=== PATIENT | female | born 1930 | race Caucasian/White ===

== ENCOUNTER 2021-03-19 07:52 | Inpatient (IN) | payer OTHER ==
[~2021-03-19] VITALS: Ht 304.8 cm; Wt 68.0 kg
--- NOTE | 2021-03-19 08:14 | NUR ---
MD Quintero at bedside for assessment
--- NOTE | 2021-03-19 08:15 | NUR ---
Patient complaints of abdominal pain for 4 days
[2021-03-19] MEDS ORDERED: FURO20TA4 PO (08:27)
[2021-03-19] MEDS ORDERED: DOCU100C36 PO (08:27)
[2021-03-19] MEDS ORDERED: CARV25TA2 PO (08:27)
[2021-03-19] MEDS ORDERED: APIX5TAB PO (08:27)
[2021-03-19] MEDS ORDERED: CILO100T PO (08:27)
[2021-03-19] MEDS ORDERED: NITR0.4T SL (08:27)
[2021-03-19] MEDS ORDERED: SULF1TAB48 PO (08:27)
[2021-03-19] MEDS ORDERED: [UNRECOGNIZED DRUG - OTHER] PO (08:27)
[2021-03-19] MEDS ORDERED: ATOR20TA PO (08:27)
[2021-03-19] MEDS ORDERED: PANT40TA49 PO (08:27)
[2021-03-19] MEDS ORDERED: FOLI1TAB94 PO (08:27)
[2021-03-19] MEDS ORDERED: CLOP75TA15 PO (08:27)
[2021-03-19] MEDS ORDERED: SACU1TAB7 PO (08:27)
[2021-03-19 08:34] LABS: *BILIRUBIN,URIN NEGATIVE (NEGATIVE); *BLOOD, URINE NEGATIVE (NEGATIVE); *CLARITY,URINE CLEAR (CLEAR); *COLOR,URINE YELLOW (YELLOW); *KETONES,URINE NEGATIVE (NEGATIVE); *UROBILINOGEN,URINE 0.2 E.U./dl (NORMAL); LEUKOCYTE ESTERASE ,URINE TRACE (NEGATIVE); NITRITE, URINE NEGATIVE (NEGATIVE); UGLUCOSE NEGATIVE (NEGATIVE)
--- NOTE | 2021-03-19 08:41 | NUR ---
patient taken to radiology for a CT and x-ray at this time
[2021-03-19 09:20] LABS: HEMATOCRIT 34.3 % (31.2-41.9); MEAN CORPUSCULAR HEMOGLOBIN 31.3 uug (24.7-32.8); MEAN CORPUSCULAR VOLUME 93.2 fL (75.5-95.3); PLATELET COUNT (AUTO) 328 K/uL (179-408)
[2021-03-19 09:30] LABS: BACTERIA,URINE NONE SEEN /HPF (NONE SEEN); RBC,URINE 0-3 /HPF (0-3); SQUAMOUS EPITHELIAL CELL,UR FEW /HPF (NONE SEEN); WBC,URINE 0-3 /HPF (0-3)
[2021-03-19 09:35] LABS: ALANINE AMINOTRANSFERASE 18 U/L (14-59); ALKALINE PHOSPHATASE 53 U/L (50-136); ASPARTATE AMINOTRANSFERASE 23 U/L (15-37); BILIRUBIN,DIRECT 0.1 mg/dL (0.0-0.2); BILIRUBIN,TOTAL 0.4 mg/dL (0.2-1.0); CARBON DIOXIDE 22 mmol/L (21-32); CHLORIDE 105 mmol/L (98-107); CREATININE 1.6 mg/dL (0.6-1.3); GLUCOSE 97 mg/dL (74-106); LIPASE 251 U/L (73-393); POTASSIUM 4.2 mmol/L (3.5-5.1); TOTAL PROTEIN, SERUM 7.2 g/dL (6.4-8.2); UREA NITROGEN, BLOOD 12 mg/dL (7-18)
[2021-03-19] MEDS ORDERED: IV NS 1000 ML 1,000 ML IV ONE (09:45)
[2021-03-19] MEDS ORDERED: ONDANSETRON 4 MG/2 ML VIAL IV ONE (09:45)
[2021-03-19] MEDS ORDERED: PANTOPRAZOLE SODIUM 40 MG VIAL IV ONE (09:45)
[2021-03-19] MEDS ORDERED: PANTOPRAZOLE SODIUM 40 MG VIAL ONE (09:56)
[2021-03-19] MEDS ORDERED: ONDANSETRON 4 MG/2 ML VIAL ONE (09:56)
--- NOTE | 2021-03-19 12:38 | NUR ---
Pt. admitted to tele observation , under care of SPECIAL EDUCATION ASSOCIATE Grace Rueda Belongs List completed and all belongs sent with patient
[2021-03-19 12:48] VITALS: BP 129/55
--- NOTE | 2021-03-19 13:00 | NUR ---
Pt received from ER. Tele SNR @ 70's. Bruising noted on UE's on florentino arm per daughter "bruising was from blood draw when she went to [facility]".- pix taken. IV intact no s/s of infiltration on L FA. Abd sound hyperactive x 4 quadrant. PT hebrew speaking but able to make her needs known. Pt denies any c/o pain. PT states LBM today "poquito". Instructed pt to use call light and call nursing to assist with her going to bathroom. Pt verbalized understanding.
[2021-03-19] MEDS ORDERED: NITROGLYCERIN 0.4 MG/TAB BOTTLE SL PRN (13:30)
[2021-03-19] MEDS ORDERED: MAGNESIUM HYDROXIDE 30 ML LIQUID UDC PO PRN (13:45)
[2021-03-19] MEDS ORDERED: Z GUARD REMEDY PASTE 57 GM TUBE TOP PRN (13:45)
[2021-03-19] MEDS ORDERED: ACETAMINOPHEN 325 MG TABLET PO PRN (13:45)
[2021-03-19] MEDS ORDERED: ZOLPIDEM 5 MG TABLET PO PRN (13:45)
[2021-03-19] MEDS: DOCUSATE SODIUM 100 MG CAPSULE PO SCH (16:06)
[2021-03-19] MEDS: APIXABAN 5 MG TABLET PO SCH (16:07)
[2021-03-19 16:18] VITALS: BP 92/48
[2021-03-19] MEDS: CARVEDILOL 25 MG TABLET PO SCH (16:23)
[2021-03-19] MEDS: ONDANSETRON 4 MG/2 ML VIAL IV PRN (16:27)
[2021-03-19] MEDS: PANTOPRAZOLE SODIUM 40 MG VIAL IV SCH (16:33)
[2021-03-19] MEDS ORDERED: SULFAMETH/TRIMETH 800/160 MG TABLET PO SCH (17:00)
[2021-03-19] MEDS: CILOSTAZOL 100 MG TABLET PO SCH (17:09)
--- NOTE | 2021-03-19 18:00 | NUR ---
Pt is in no acute distress. Call light is within reach. SON at bedside.
[2021-03-19 20:00] VITALS: BP 102/47
--- NOTE | 2021-03-19 20:00 | NUR ---
PT had small BM. No bloody BM noted. Pt states that his EUDON (own meds) she takes at night. New orders received and carried out.
[2021-03-19] MEDS ORDERED: SENNOSIDES 1 TABLET PO SCH (21:00)
[2021-03-20] VITALS: BP 100/40
[2021-03-20] MEDS: ONDANSETRON 4 MG/2 ML VIAL IV PRN (00:23)
[2021-03-20 04:00] VITALS: BP 112/45
[2021-03-20] MEDS ORDERED: PANTOPRAZOLE SODIUM 40 MG TABLET.DR PO SCH (07:00)
[2021-03-20 07:19] LABS: HEMATOCRIT 29.5 % (31.2-41.9); MEAN CORPUSCULAR HEMOGLOBIN 31.9 uug (24.7-32.8); MEAN CORPUSCULAR VOLUME 94.8 fL (75.5-95.3); PLATELET COUNT (AUTO) 263 K/uL (179-408)
[2021-03-20 07:33] LABS: CARBON DIOXIDE 24 mmol/L (21-32); CHLORIDE 110 mmol/L (98-107); CHOLESTEROL 167 mg/dL (<200); CREATININE 1.5 mg/dL (0.6-1.3); GLUCOSE 86 mg/dL (74-106); HDL CHOLESTEROL 63 mg/dL (40-60); MAGNESIUM 1.9 mg/dL (1.8-2.4); PHOSPHOROUS 3.8 mg/dL (2.5-4.9); POTASSIUM 4.3 mmol/L (3.5-5.1); TRIGLYCERIDES 61 MG/DL (30-150); UREA NITROGEN, BLOOD 12 mg/dL (7-18)
[2021-03-20] MEDS: PANTOPRAZOLE SODIUM 40 MG VIAL IV SCH (08:56)
[2021-03-20] MEDS: DOCUSATE SODIUM 100 MG CAPSULE PO SCH (08:56)
[2021-03-20] MEDS: CILOSTAZOL 100 MG TABLET PO SCH (08:57)
[2021-03-20] MEDS: CARVEDILOL 25 MG TABLET PO SCH (08:59)
[2021-03-20] MEDS ORDERED: FOLIC ACID 1 MG TABLET PO SCH (09:00)
[2021-03-20] MEDS ORDERED: SULFAMETH/TRIMETH 800/160 MG TABLET PO SCH (09:00)
[2021-03-20] MEDS ORDERED: CLOPIDOGREL 75 MG TABLET PO SCH (09:00)
[2021-03-20] MEDS ORDERED: [UNRECOGNIZED DRUG - OTHER] PO SCH (09:00)
[2021-03-20] MEDS ORDERED: ATORVASTATIN 20 MG TABLET PO SCH (09:00)
[2021-03-20] MEDS ORDERED: FUROSEMIDE 20 MG TABLET PO SCH (09:00)
[2021-03-20] MEDS: APIXABAN 5 MG TABLET PO SCH (09:00)
[2021-03-20] MEDS ORDERED: [UNRECOGNIZED DRUG - OTHER] PO SCH (09:00)
--- NOTE | 2021-03-20 10:00 | NUR ---
PATIENT SEEN AND EXAMINED BY JUSTICE TAYLOR WITH NO NEW ORDERS AT THIS TIME
[2021-03-20] MEDS ORDERED: LACTULOSE 20 G/30 ML LIQUID UDC PO ONE (10:30)
--- NOTE | 2021-03-20 11:15 | NUR ---
MEDICATED WITH LACTULOSE ORDERED WILL OBSERVE.
[2021-03-20 11:35] VITALS: BP 128/47
[2021-03-20] MEDS ORDERED: PANT20TA2 PO (12:27)
[2021-03-20] MEDS ORDERED: SENN-175 PO (12:27)
--- NOTE | 2021-03-20 12:30 | NUR ---
DISCHARGE ORDER NOTED PATIENT HAD A BOWEL MOVEMENT AND IS NOW FEELING OKAY WITH GOOD BOWEL MOVEMENT AT THIS TIME PATIENTS SON AWARE AND STATED THAT HIS SISTER WILL BE HERE AND WILL ASSIST HIM WITH TAKING THE PATIENT HOME.
[2021-03-20 16:00] VITALS: BP 98/41
--- NOTE | 2021-03-20 16:45 | NUR ---
PATIENT DISCHARGED ACCOMPANIED BY HIS SON NICHO WITH DISCHARGE INSTRUCTIONS AND ALL HER HOME MEDICATIONS THAT WAS HELD AT [facility] AND ALL HER PERSONAL BELONGINGS IN SATISFACTORY CONDITION DENIES ABDOMINAL PAIN AT THIS TIME.
[2021-03-20] MEDS ORDERED: [UNRECOGNIZED DRUG - OTHER] PO SCH (21:00)
== END 2021-03-20 16:45 | disposition home or self-care (01) | DRG 254 ==
LOC: ER 07:52 → MEDSURG3 11:32 → TELE3 11:33 → MEDSURG3 03-20 10:08
PROVIDERS: ADMIT Nurse Practitioner Acute Care; ATTEND Nurse Practitioner Acute Care
DX: K59.00 Constipation, unspecified (principal); N17.0 Acute kidney failure with tubular necrosis; Z86.711 Personal history of pulmonary embolism; Z79.01 Long term (current) use of anticoagulants; I25.10 Atherosclerotic heart disease of native coronary artery without angina pectoris; K21.9 Gastro-esophageal reflux disease without esophagitis; K44.9 Diaphragmatic hernia without obstruction or gangrene; Z79.02 Long term (current) use of antithrombotics/antiplatelets; Z20.822 Contact with and (suspected) exposure to COVID-19; K57.30 Diverticulosis of large intestine without perforation or abscess without bleeding; I10 Essential (primary) hypertension
CPT/HCPCS: 36415; 70030-TC; 71045; 83690; 83735; 84100; 85025; 85730; 87086; 93005; A4663; C9113; G0378; J2405; J7030

== ENCOUNTER 2021-05-26 11:20 | Inpatient (IN) | payer OTHER ==
[~2021-05-26] VITALS: Ht 157.5 cm; Wt 70.5 kg
[~2021-05-26 11:20] MED LIST: APIX5TAB PO; ATOR20TA PO; CARV25TA2 PO; CILO100T PO; CLOP75TA15 PO; DOCU100C36 PO; FOLI1TAB94 PO; FURO20TA4 PO; NITR0.4T SL; PANT20TA2 PO; PANT40TA49 PO; SENN-175 PO; [UNRECOGNIZED DRUG - OTHER] PO
[2021-05-26] MEDS ORDERED: GABA-532 PO (11:52)
[2021-05-26] MEDS ORDERED: SERT50TA PO (11:52)
[2021-05-26] MEDS ORDERED: METO-295 PO (11:52)
[2021-05-26] MEDS ORDERED: CEPH500C2 PO (11:52)
[2021-05-26] MEDS ORDERED: DEXAMETHASONE SOD PHOSPHATE 4 MG INJ IV ONE (12:00)
[2021-05-26] MEDS ORDERED: ALBUTEROL SULFATE 2.5 MG/3 ML NEBU NEB ONE (12:00)
[2021-05-26] MEDS ORDERED: IV NORMAL SALINE 1000 ML BAG IV ONE (12:00)
[2021-05-26] MEDS ORDERED: ALBUTEROL SULFATE 2.5 MG/3 ML NEBU ONE ×2 (12:12→21:25)
[2021-05-26 12:16] LABS: HEMATOCRIT 34.9 % (31.2-41.9); MEAN CORPUSCULAR VOLUME 93.4 fL (75.5-95.3); PLATELET COUNT (AUTO) 243 K/uL (179-408)
[2021-05-26 12:21] LABS: CREATININE 1.3 mg/dL (0.6-1.3)
[2021-05-26 12:35] LABS: BILIRUBIN,DIRECT 0.1 mg/dL (0.0-0.2); BILIRUBIN,TOTAL 0.5 mg/dL (0.2-1.0); TOTAL PROTEIN, SERUM 7.7 g/dL (6.4-8.2)
[2021-05-26] MEDS ORDERED: DEXAMETHASONE SOD PHOSPHATE 10 MG INJ ONE (12:36)
--- NOTE | 2021-05-26 12:37 | NUR ---
Pt resting comfortably, family at bedside. EKG done, Saline lock placed, labs drawn, IV fluid Tx began. Pt and family aware, awaiting results for labs and CXR.
--- NOTE | 2021-05-26 13:00 | NUR ---
1st liter completed. Per provider, will hold the remaining fluids on order. Pt ambulated to restroom using walker to collect urine specimen.
[2021-05-26 13:33] LABS: *BILIRUBIN,URIN NEGATIVE (NEGATIVE); *BLOOD, URINE NEGATIVE (NEGATIVE); *CLARITY,URINE CLEAR (CLEAR); *COLOR,URINE YELLOW (YELLOW); *KETONES,URINE NEGATIVE (NEGATIVE); *UROBILINOGEN,URINE 0.2 E.U./dl (NORMAL); LEUKOCYTE ESTERASE ,URINE TRACE (NEGATIVE); NITRITE, URINE NEGATIVE (NEGATIVE); PH,URINE 6.5 (5.0-8.0); UGLUCOSE NEGATIVE (NEGATIVE)
[2021-05-26 16:33] LABS: RBC,URINE 0-3 /HPF (0-3); WBC,URINE 0-3 /HPF (0-3)
[2021-05-26] MEDS ORDERED: ZOLPIDEM 5 MG TABLET PO PRN (17:00)
[2021-05-26] MEDS ORDERED: NITROGLYCERIN 0.4 MG/TAB BOTTLE SL SCH (17:00)
[2021-05-26] MEDS ORDERED: APIXABAN 5 MG TABLET PO SCH (17:00)
[2021-05-26] MEDS ORDERED: ACETAMINOPHEN 325 MG TABLET PO PRN (17:00)
[2021-05-26] MEDS ORDERED: Z GUARD REMEDY PASTE 57 GM TUBE TOP PRN (17:00)
[2021-05-26] MEDS ORDERED: IV 1/2NS 1000 ML 1,000 ML IV PRN (17:00)
--- NOTE | 2021-05-26 18:30 | NUR ---
Pt laying comfortably, in stable condition with no current C/O pain. Accompanied by son at bedside. Aware they are awaiting bed assignment.
--- NOTE | 2021-05-26 19:07 | NUR ---
Hand-off report given to JEFRY Raza.
[2021-05-26] MEDS ORDERED: NITROGLYCERIN 0.4 MG/TAB BOTTLE SL PRN (19:15)
[2021-05-26] MEDS ORDERED: ALBUTEROL SULFATE 2.5 MG/3 ML NEBU NEB SCH (19:30)
--- NOTE | 2021-05-26 19:30 | NUR ---
pt a/o denies pain or sob, pt aware she is admitted to the hospital. Awaiting med/surg bed.
[2021-05-26] MEDS: APIXABAN 5 MG TABLET PO SCH (20:23)
[2021-05-26] MEDS: ALBUTEROL SULFATE 2.5 MG/ 0.5 ML NEBU NEB SCH (21:00)
[2021-05-26] MEDS: IPRATROPIUM BROMIDE 0.5 MG/2.5 ML NEBU NEB SCH (21:00)
[2021-05-26] MEDS ORDERED: IPRATROPIUM BROMIDE 0.5 MG/2.5 ML NEBU ONE (21:25)
[2021-05-26] MEDS: CARVEDILOL 25 MG TABLET PO SCH (21:31)
[2021-05-26] MEDS ORDERED: CARVEDILOL 25 MG TABLET ONE (21:31)
[2021-05-26] MEDS ORDERED: DOXYCYCLINE HYCLATE 100 MG TABLET ONE (21:32)
[2021-05-26] MEDS ORDERED: GABAPENTIN 100 MG CAPSULE ONE (21:32)
[2021-05-26] MEDS: GABAPENTIN 100 MG CAPSULE PO SCH (21:32)
[2021-05-26] MEDS: methylPREDNISolone SOD SUCC 40 MG/ML VIAL IV SCH (21:32)
[2021-05-26] MEDS ORDERED: CILOSTAZOL 100 MG TABLET ONE (21:32)
[2021-05-26] MEDS ORDERED: methylPREDNISolone SOD SUCC 40 MG/ML VIAL ONE (21:32)
[2021-05-26] MEDS: CILOSTAZOL 100 MG TABLET PO SCH (21:32)
[2021-05-26] MEDS: DOXYCYCLINE HYCLATE 100 MG TABLET PO SCH (21:32)
--- NOTE | 2021-05-27 00:31 | NUR ---
pt inc of urnine, changed. pt able to assist, denies pain or sob.
[2021-05-27] MEDS: ALBUTEROL SULFATE 2.5 MG/ 0.5 ML NEBU NEB SCH ×4 (01:30→20:29)
[2021-05-27] MEDS: IPRATROPIUM BROMIDE 0.5 MG/2.5 ML NEBU NEB SCH ×4 (01:30→20:28)
[2021-05-27 06:02] LABS: MEAN CORPUSCULAR VOLUME 92.5 fL (75.5-95.3); PLATELET COUNT (AUTO) 244 K/uL (179-408)
[2021-05-27 06:18] LABS: CREATININE 1.2 mg/dL (0.6-1.3); MAGNESIUM 1.6 mg/dL (1.8-2.4); POTASSIUM 3.8 mmol/L (3.5-5.1)
--- NOTE | 2021-05-27 06:23 | NUR ---
pt awake denies pain, made pt aware she has a bed room 312 will transfer after shift change.
[2021-05-27] MEDS: methylPREDNISolone SOD SUCC 40 MG/ML VIAL IV SCH ×3 (07:50→21:02)
[2021-05-27] MEDS: PANTOPRAZOLE SODIUM 40 MG TABLET.DR PO SCH (07:50)
[2021-05-27] MEDS ORDERED: methylPREDNISolone SOD SUCC 40 MG/ML VIAL ONE ×2 (08:02)
[2021-05-27] MEDS ORDERED: PANTOPRAZOLE SODIUM 40 MG TABLET.DR PO ONE (08:02)
--- NOTE | 2021-05-27 08:48 | NUR ---
Report called in to JEFRY Bansal.
[2021-05-27] MEDS ORDERED: ATORVASTATIN 20 MG TABLET PO SCH ×2 (09:00→21:00)
[2021-05-27] MEDS ORDERED: FUROSEMIDE 20 MG TABLET PO SCH (09:00)
[2021-05-27] MEDS ORDERED: IPRATROPIUM BROMIDE 0.5 MG/2.5 ML NEBU ONE (09:24)
[2021-05-27] MEDS ORDERED: ALBUTEROL SULFATE 2.5 MG/ 0.5 ML NEBU ONE (09:24)
--- NOTE | 2021-05-27 09:45 | NUR ---
Pt taken to 312 via wheelchair, in stable condition. Pt ambulated with assistance from chair to bed. Hand-off given to Nimisha.
[2021-05-27 10:00] VITALS: BP 132/71
--- NOTE | 2021-05-27 10:00 | NUR ---
received from ER awake alert/oriented x 4, speaks Yi and some Greek, oriented to room set-up and bed controls and call light, initial assessment done, safety measures initiated, daughter here at bedside
[2021-05-27] MEDS: CILOSTAZOL 100 MG TABLET PO SCH ×2 (10:22→17:14)
[2021-05-27] MEDS: DOXYCYCLINE HYCLATE 100 MG TABLET PO SCH ×2 (10:24→20:50)
[2021-05-27] MEDS: SERTRALINE HCL 50 MG TABLET PO SCH (10:25)
[2021-05-27] MEDS: FOLIC ACID 1 MG TABLET PO SCH (10:26)
[2021-05-27] MEDS: APIXABAN 5 MG TABLET PO SCH ×2 (10:27→17:15)
[2021-05-27] MEDS: CARVEDILOL 25 MG TABLET PO SCH ×2 (10:27→17:14)
[2021-05-27] MEDS: MAGNESIUM SULFATE/D5W 100 ML IV SCH ×2 (10:31→11:45)
[2021-05-27 12:07] VITALS: BP 119/69
--- NOTE | 2021-05-27 12:26 | NUR ---
resting in bed, seen by Mikki Jiang NP, asssited to BR by PLASTERING SUPERVISOR, daughter at bedside
[2021-05-27] MEDS ORDERED: IV LACTATED RINGERS SOLUTION 1,000 ML IV PRN (13:00)
[2021-05-27] MEDS: BENZONATATE 100 MG CAPSULE PO SCH ×2 (14:16→21:02)
[2021-05-27 16:00] VITALS: BP 105/52
--- NOTE | 2021-05-27 18:11 | NUR ---
no distress noted, all needs attended and met, son at bedside, call light within reach and bed alarm on, has dry cough- still in need of sputum specimen
--- NOTE | 2021-05-27 19:30 | NUR ---
Received patient lying in bed with son at bedside. AAOx4, with episodes of forgetfulness. Able to make needs known. Patient denies SOB, chest pain or dizziness. IVF on L wrist running Lactated Ringer's at 50cc/hr, infusing well. Instructed patient how to expectorate phlegm for sputum collection, patient advised cough has been non-productive but verbalized understanding for instructions. Patient's blood pressure reading resulted 105/52mmhg, with HR of 81bpm, patient denies dizziness, elevated patient's legs. Safety precautions and comfort measures initiated. Bed in locked position, call light button and frequently used items within patient's reach. Will continue to monitor.
[2021-05-27 20:20] VITALS: BP 98/51
[2021-05-27] MEDS: GABAPENTIN 100 MG CAPSULE PO SCH (20:50)
[2021-05-28] MEDS: ALBUTEROL SULFATE 2.5 MG/ 0.5 ML NEBU NEB SCH ×3 (01:55→13:30)
[2021-05-28] MEDS: IPRATROPIUM BROMIDE 0.5 MG/2.5 ML NEBU NEB SCH ×3 (01:55→13:30)
[2021-05-28 04:46] VITALS: BP 130/71
[2021-05-28] MEDS: BENZONATATE 100 MG CAPSULE PO SCH (05:30)
[2021-05-28] MEDS: methylPREDNISolone SOD SUCC 40 MG/ML VIAL IV SCH (05:30)
[2021-05-28] MEDS: PANTOPRAZOLE SODIUM 40 MG TABLET.DR PO SCH (06:40)
--- NOTE | 2021-05-28 06:44 | NUR ---
Pt. slept through the night with no complaints of SOB, dizziness or chest pain. IVF on L wrist still infusing well. Pt has been compliant medications. All needs were attended to and met. Reminded patient regarding the need to collect sputum, and advised patient regarding follow up chest Xray which will be done this AM. Safety precautions and comfort measures were maintained. Will endorse to day shift nurse.
[2021-05-28 07:38] LABS: HEMATOCRIT 32.5 % (31.2-41.9); MEAN CORPUSCULAR HEMOGLOBIN 30.7 uug (24.7-32.8); MEAN CORPUSCULAR VOLUME 93.1 fL (75.5-95.3); PLATELET COUNT (AUTO) 238 K/uL (179-408)
[2021-05-28 07:48] LABS: CREATININE 1.1 mg/dL (0.6-1.3); MAGNESIUM 2.4 mg/dL (1.8-2.4); POTASSIUM 4.1 mmol/L (3.5-5.1)
[2021-05-28 08:17] VITALS: BP 153/84
[2021-05-28] MEDS: SERTRALINE HCL 50 MG TABLET PO SCH (08:39)
[2021-05-28] MEDS: DOXYCYCLINE HYCLATE 100 MG TABLET PO SCH (08:39)
[2021-05-28] MEDS: APIXABAN 5 MG TABLET PO SCH (08:40)
[2021-05-28] MEDS: FOLIC ACID 1 MG TABLET PO SCH (08:40)
[2021-05-28] MEDS: CARVEDILOL 25 MG TABLET PO SCH (08:40)
[2021-05-28] MEDS: CILOSTAZOL 100 MG TABLET PO SCH (08:40)
[2021-05-28 11:59] VITALS: BP 110/53
[2021-05-28] MEDS ORDERED: ALBU8.5H8 INH (12:34)
[2021-05-28] MEDS ORDERED: BENZ-38 PO (12:34)
[2021-05-28] MEDS ORDERED: DOXY100T2 PO (12:34)
[2021-05-28] MEDS ORDERED: PRED20TA PO (12:34)
--- NOTE | 2021-05-28 15:00 | NUR ---
DISCHARGED PATIENT WITH THE ASSISTANCE OF THE SON VIA PRIVATE CARE. NO PAIN OR ANY DISTRESS IDENTIFIED. VS WNL. STABLE CONDITION. DISCHARGE INSTRUCTIONS GIVEN AND SIGNED. BELONGING LIST SIGNED. NO OTHER CONCERNS IDENTIFIED. ALL DUE MEDS WERE GIVEN. ALL NEEDS ATTENDED.
== END 2021-05-28 15:00 | disposition home or self-care (01) | DRG 140 ==
LOC: ER 11:20 → TRANSITION 16:01 → OBSER 16:01 → UNDOADMIN 16:01 → MEDSURG3 05-27 08:59
PROVIDERS: ADMIT Nurse Practitioner Family; ATTEND Nurse Practitioner Family
DX: J44.1 Chronic obstructive pulmonary disease with (acute) exacerbation (principal); E44.1 Mild protein-calorie malnutrition; I50.9 Heart failure, unspecified; I25.10 Atherosclerotic heart disease of native coronary artery without angina pectoris; Z20.822 Contact with and (suspected) exposure to COVID-19; Z86.711 Personal history of pulmonary embolism; I25.2 Old myocardial infarction; E88.09 Other disorders of plasma-protein metabolism, not elsewhere classified; Z79.01 Long term (current) use of anticoagulants; Z68.28 Body mass index [BMI] 28.0-28.9, adult
CPT/HCPCS: 36415; 70030-TC; 71045; 83605; 83735; 85025; 87040; 87077; 87086; 93005; 94640; A4663; G0378; J1100; J2920; J3475; J3490; J3590; J7030; J7120